=== PATIENT | female | born 1985 | race Caucasian/White ===

== ENCOUNTER 2020-04-19 15:13 | Emergency (ER) | payer OTHER, SELFPAY ==
[2020-04-19 15:39] VITALS: BP 138/80; PULSE 84; RESP 16; TEMP 36.7; O2SAT 96; BMI 31.7
--- NOTE | 2020-04-19 16:01 | ED_ITS ---
HPI - Skin/Abscess/Foreign Bdy General: Chief complaint: Skin/Abscess/Foreign Body Stated complaint: RUE INJURY Time Seen by Provider: 04/19/20 15:43 History of Present Illness: MD complaint: laceration Onset (ago): minute(s) Tetanus up to date: no Location: RUE Severity: mild Quality: other (Bleeding) Pain Consistency: constant Associated symptoms: Reports no associated symptoms; Deny chills or fever(s) Review of Systems Const: Denies: fever(s) or chills Skin/Breast: Reports: other (Laceration right thumb with active bleeding) Psych: Denies: anxiety Physical Exam Const: COMMON NORMALS: no acute distress and patient oriented x3 Neuro: COMMON NORMALS: patient oriented x3 Skin: OTHER: Right thumb with flap of skin attached to the proximal aspect of the thumb with a laceration type avulsion. Has an active small arterial bleed has good distal neurovascular status and able to move the thumb Procedures Laceration Laceration 1: Site: hand Side (If applicable): right Description: flap, irregular and clean Depth: simple, single layer Local Anesthetic: lidocaine 1% Amount of anesthesia used (mL): 3 Pre-repair: wound explored, irrigated extensively and deep structures intact Skin layer closed with: nylon Size (cm): 4-0 Number of sutures: 6 Technique: simple, interrupted Course Vital Signs: Vital signs: Vital Signs Temperature 98.1 F 04/19/20 15:39 Pulse Rate 84 04/19/20 15:39 Respiratory Rate 16 04/19/20 15:39 Blood Pressure 138/80 04/19/20 15:39 Pulse Oximetry 96 04/19/20 15:39 Coding Level of Care Code ED Tax Collection Coordinator for Demar Uribe
[2020-04-19] MEDS: tetanus-dipt-pertussis 0.5 mL SDV IM (16:13)
== END 2020-04-19 16:23 | disposition home or self-care (01) ==
PROVIDERS: Emergency Provider Nurse Practitioner Family; Family Provider Family Medicine; PCP Family Medicine
DX: S61.011A Laceration without foreign body of right thumb without damage to nail, initial encounter (principal); X58.XXXA Exposure to other specified factors, initial encounter; Z23 Encounter for immunization
CPT/HCPCS: 12002; 12345; 90471; 90715; 99281; 99282

== ENCOUNTER 2022-06-01 20:45 | Emergency (ER) | payer SELFPAY ==
[2022-06-01 21:00] VITALS: BP 110/58; PULSE 84; RESP 16; TEMP 37.3; O2SAT 95; BMI 33.3
[2022-06-01 22:12] VITALS: BP 121/75; PULSE 76; RESP 15; O2SAT 97
--- NOTE | 2022-06-01 22:21 | XRR_ITS ---
PROCEDURE INFORMATION: Exam: XR Chest Exam date and time: 06/01/2022 10:25 PM Age: 36 years old Clinical indication: Shortness of breath; Additional info: Low oxygen, cough TECHNIQUE: Imaging protocol: Radiologic exam of the chest. Views: 2 views. COMPARISON: No relevant prior studies available. FINDINGS: Lungs: Atelectasis versus pneumonia in the right middle lobe. Pleural spaces: No pleural effusion. No pneumothorax. Heart/Mediastinum: The cardiac silhouette and mediastinal contours are unremarkable. Bones/joints: Unremarkable for age. XR/XR chest 2V* 15013 IMPRESSION: Atelectasis versus pneumonia in the right middle lobe. Recommend clinical correlation. Recommend followup chest imaging to insure resolution of these findings.
--- NOTE | 2022-06-01 22:21 | ED_ITS ---
HPI - General Adult General: Chief complaint: General Medical Stated complaint: 02 Stats Low Time Seen by Provider: 06/01/22 22:18 History of Present Illness: 36-year-old female comes in today with complaints of cough and increased shortness of breath over the last 2 days. Patient has been ill for about 4 to 5 days. Patient appears nontoxic. Patient reports oxygen saturation below 94%. Patient denies any chronic medical problems or asthma. Patient appears mildly unwell. Patient was seen at primary care yesterday and was given a albuterol inhaler to use. Associated symptoms: Reports dyspnea Review of Systems Const: Reports: fever(s) Resp: Reports: dyspnea [facility] ED Female Reproductive History: Date of last menstrual period: 05/18/22 Physical Exam Const: COMMON NORMALS: alert HENMT: COMMON NORMALS: normocephalic HEAD & SCALP: normocephalic NOSE: Normal nares present MOUTH: Normal oral and palatal mucosa present Neck/C-Spine: COMMON NORMALS: full ROM Chest: COMMONS NORMALS: normal inspection of the chest Resp: COMMON NORMALS: normal respiratory effort AUSCULTATION: diminished lung sounds bilateral in the lower lung zamora Cardio: COMMON NORMALS: regular rate and regular rhythm RATE: regular rate RHYTHM: regular rhythm Extremity: COMMON NORMALS: normal to inspection Neuro: SENSORIUM/ORIENTATION: Yes alert Skin: COMMON NORMALS: turgor normal GENERAL SKIN EXAM: turgor normal Course Vital Signs: Vital signs: Vital Signs Temperature 99.1 F 06/01/22 21:00 Pulse Rate 76 06/01/22 22:12 Respiratory Rate 15 06/01/22 22:12 Blood Pressure 121/75 06/01/22 22:12 Pulse Oximetry 97 06/01/22 22:[address] thod 06/01/22 22:12 MDM - General Adult Medical Decision Making Patient comes in today for complaints of cough and shortness of breath for the last 2 days. Patient reports a mild illness prior to this time. Patient was se en by primary care yesterday and was given albuterol inhaler. On exam patient has decreased breath sounds in the bases. Vital signs are unremarkable. Differential diagnosis includes pneumonia, influenza, COVID-19. Chest x-ray notes a effusion versus infiltrate to the right lower lung zamora. Suspect pneumonia. Patient was placed on antibiotics for community-acquired pneumonia with cefdinir and azithromycin. Patient was given a dose of ceftriaxone and dexamethasone in the ER with a loading dose of azithromycin. Encourage continued use of the albuterol inhaler. Recommend follow-up with primary care in 1 week for recheck. Recommend return to the ER for worsening symptoms. Discharge Plan Discharge Patient Disposition: Home Clinical Impression: Pneumonia Qualifiers: Pneumonia type: due to unspecified organism Laterality: right Lung location: lower lobe of lung Qualified Code(s): J18.9 - Pneumonia, unspecified organism Condition: Stable Prescriptions: New azithromycin 250 mg tablet 250 mg PO DAILY 4 Days Qty: 4 0RF cefdinir 300 mg capsule 300 mg PO BID 5 Days Qty: 10 0RF prednisone 20 mg tablet 20 mg PO DAILY 5 Days Qty: 5 0RF Discharge Orders: Discharge ED (Routine); Ordered 06/01/22 Ordered By: Dino Thompson Discharge Diet: Usual diet Discharge Activity: Increase activity as tolerated Patient Instructions: Community Acquired Pneumonia (ED) Activity Restrictions/Additional Instructions: Home and rest. Drink plenty of water and fluids with medication. Use inhaler 2 puffs every 4 hours as needed for cough, shortness of breath, or wheezing. Follow-up with primary care in 1 week for recheck. Return to ER for worsening symptoms such as increased shortness of breath, severe chest pain, inability to hold fluids down, or new concerns. Stand Alone Forms: Work/School Release Coding Level of Care Code ED Master Barber for Demar Fwcarla Exam Comprehensive
[2022-06-01] MEDS: dexamethasone 10 mg/mL INJ IM (23:11)
[2022-06-01] MEDS: azithromycin 250 mg Tablet 500 MG PO (23:11)
[2022-06-01] MEDS: cefTRIAXone 1,000 MG in lidocaine 1% 2.1 ML 1 MG IM (23:14)
[2022-06-01 23:17] VITALS: O2SAT 96
== END 2022-06-01 23:54 | disposition home or self-care (01) ==
PROVIDERS: Emergency Provider Nurse Practitioner Family
DX: J18.9 Pneumonia, unspecified organism (principal)
CPT/HCPCS: 71046; 96365; 96366; 96372; 99284; J0696; J1100; Q0144